=== PATIENT | female | born 1970 | race Caucasian/White ===

== ENCOUNTER 2024-10-22 14:11 | Emergency (ER) | payer BC, SELFPAY ==
[2024-10-22 14:16] VITALS: BP 122/71; PULSE 76; TEMP 36.6; O2SAT 100; BMI 20.4
--- NOTE | 2024-10-22 14:26 | XR_ITS ---
The [address] [address] Patient Name: VELVET MAURO MRN: [id number] date: 1970 Sex: F Assigned Patient Location: ER Current Patient Location: ER Accession/Order Number: [id number] Exam Date: 10/22/2024 14:45 Report Date: 10/22/2024 15:07 At the request of: FLORENCIO VENTURA Procedure: XR ribs LT min 3V w CXR1V EXAMINATION: XR ribs LT min 3V w CXR1V HISTORY: left lat lower rib pain COMPARISON: No relevant comparison available. FINDINGS: LUNGS: Underexpanded lungs with mild haziness within left lung base. PLEURA: No pneumothorax, effusion, or pleural thickening. MEDIASTINUM: No visible mass or adenopathy. CARDIAC: No cardiomegaly or cardiac silhouette abnormality. RIBS: Nondisplaced posterior lateral left ninth and 10th rib fractures. OTHER: Negative. XR/XR ribs LT min 3V w CXR1V IMPRESSION: 1. Acute nondisplaced left 9th and 10th rib fractures. 2. Mild left basilar atelectasis. No pneumothorax or pleural effusion. Electronically authenticated by: YRIS LAWRENCE Date: 10/22/2024 15:07
[2024-10-22] MEDS: KETOROLAC TROMETHAMINE 60 MG/2 ML VIAL IM (14:49)
[2024-10-22 14:53] VITALS: BP 119/81; PULSE 83; O2SAT 99
--- NOTE | 2024-10-22 14:59 | PC.NURSE ---
Pain to left ribcage, patient reports fall approx. one week ago. Has had pain to left rib area since, denies SOB.
--- NOTE | 2024-10-22 15:19 | ED_ITS ---
HPI HPI - General Adult General Chief complaint: Fall Stated complaint: LEFT SIDE PAIN, POSSIBLE INJURY/FALL Time Seen by Provider: 10/22/24 14:22 Source: patient Mode of arrival: walk-in Limitations: no limitations History of Present Illness HPI narrative: 54-year-old female presents here with a chief complaint of left-sided rib pain. She states she was at a football constitution party 6 days ago slipped and fell while she was intoxicated striking her left rib. She has had increased pain from the site over the course of the week and difficulty with deep inspiration. She is a smoker. She has no crepitus noted to the chest wall initially no bruising noted. She has increased pain with range of motion and deep inspiration. Related Data Previous Rx's ?Medication ?Instructions ?Recorded methocarbamol 500 mg tablet 500 mg PO TID PRN pain #10 tabs 10/22/24 Allergies Allergy/AdvReac Type Severity Reaction Status Date / Time No Known Drug Allergies Allergy Verified 10/22/24 14:16 Opioid HPI Opioid Management Most Recent Opioid Data: No Data to Display Review of Systems ROS Narrative All Systems are negative except as noted/marked.All systems reviewed and otherwise negative PFSH PFSH Social History Little interest or pleasure in doing things: not at all Feeling down, depressed, or hopeless: not at all Exam Narrative Exam Narrative: All Systems are negative except as noted/marked.All systems reviewed and otherwise negative Nurses note and vital signs reviewed and patient is not hypoxic. General: The patient appears well and in no apparent distress. Patient is resting comfortably on cart. Skin: Warm, dry, no pallor noted. There is no rash noted. Head: Normocephalic, atraumatic Eye: Normal conjunctiva, no drainage, EOMI. PERRL Ears, Nose, Mouth, and Throat: oral mucosa is moist. Nares patent. Mouth without vesicles. Ear canals patent. Tm's without Erythema Cardiovascular: Regular Rate and Rhythm Respiratory: Patient is in no distress, no accessory muscle use, lungs are clear to auscultation, no wheezing, rales or rhonchi No chest wall crepitus noted to palpation, no obvious deformities, no flail chest, no subcutaneous emphysema, no bruising or ecchymosis Musculoskeletal: The patient has no evidence of calf tenderness, no pitting edema, symmetrical pulses noted bilaterally Neurological: A&O x4, normal speech Psychiatric: Cooperative Constitutional Vital Signs, click to edit/add: Last Vital Signs Temp 97.9 F 10/22/24 14:16 Pulse 83 10/22/24 14:53 Resp 18 10/22/24 14:53 BP 119/81 10/22/24 14:53 Pulse Ox 99 10/22/24 14:53 O2 Del Method Room Air 10/22/24 14:53 Course Vital Signs Vital signs: Vital Signs Temperature 97.9 F 10/22/24 14:16 Pulse Rate 76 10/22/24 14:16 Respiratory Rate 16 10/22/24 14:16 Blood Pressure 122/71 10/22/24 14:16 Pulse Oximetry 100 10/22/24 14:16 Temperature 97.9 F 10/22/24 14:16 Pulse Rate 83 10/22/24 14:53 Respiratory Rate 18 10/22/24 14:53 Blood Pressure 119/81 10/22/24 14:53 Pulse Oximetry 99 10/22/24 14:53 Oxygen Delivery Method Room Air 10/22/24 14:53 Medical Decision Making [facility] Narrative Medical decision making narrative: 54-year-old female presents here with a chief complaint of left-sided rib pain. She states she was at a football [employer] party 6 days ago slipped and fell while she was intoxicated striking her left rib. She has had increased pain from the site over the course of the week and difficulty with deep inspiration. She is a smoker. She has no crepitus noted to the chest wall initially no bruising noted. She has increased pain with range of motion and deep inspiration. X-rays positive for a nondisplaced ninth and 10th rib fracture. She will be treated with OPEP therapy discharged home. Patient made aware of diagnosis and agrees with plan of care. Toradol to be discharged home with prescription of Robaxin. Patient told to use splint therapy for help with cough. Patient agrees with plan of care. Differential Diagnosis Differential Diagnosis: Left lower chest wall pain, rib contusion, rib fracture Medical Records Medical records reviewed: Yes I reviewed the patient's medical records Lab Data Lab results reviewed: Yes I reviewed the patient's lab results Imaging Data Chest x-ray: Radiologist's impression: ITS Impressions Ribs X-Ray 10/22/24 14:26 IMPRESSION: 1. Acute nondisplaced left 9th and 10th rib fractures. 2. Mild left basilar atelectasis. No pneumothorax or pleural effusion. Electronically authenticated by: YRIS LAWRENCE Date: 10/22/2024 15:07 Discharge Plan Discharge Chief Complaint: Fall Clinical Impression: Closed rib fracture Patient Disposition: Home, Self-Care Time of Disposition Decision: 15:18 Condition: Good Prescriptions / Home Meds: New methocarbamol 500 mg tablet 500 mg PO TID PRN (Reason: pain) Qty: 10 0RF Print Language: Ethiopian Instructions: Rib Fracture (ED) Referrals: Fernando Ojeda MD [Primary Care Provider] - 1 week
[2024-10-22 15:43] VITALS: BP 118/82; PULSE 82; O2SAT 100
--- NOTE | 2024-10-22 16:55 | RESP.RT ---
PEP done per Kecia Sanchez
== END 2024-10-22 15:46 | disposition home or self-care (01) ==
PROVIDERS: Emergency Provider Emergency Medicine; PCP Family Medicine
DX: S22.42XA Multiple fractures of ribs, left side, initial encounter for closed fracture (principal); W01.10XA Fall on same level from slipping, tripping and stumbling with subsequent striking against unspecified object, initial encounter
CPT/HCPCS: 71101; 94667; 96372; 99284; J1885